=== PATIENT | male | born 1995 | race Two or more races ===

== ENCOUNTER 2018-02-13 19:44 | Emergency (ER) | payer OTHER ==
[~2018-02-13] VITALS: Ht 177.8 cm; Wt 56.7 kg
[2018-02-13 19:57] VITALS: BP 144/94
[2018-02-13] MEDS ORDERED: Acetaminophen 500mg (ES) tab ORAL ONE (20:15)
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
[2018-02-13] MEDS ORDERED: ROBAXIN500 MG PO (20:43)
[2018-02-13] MEDS ORDERED: TYLENOL EXTRA500 MG ORAL (20:43)
[2018-02-13 20:55] VITALS: BP 144/94
--- NOTE | 2018-02-14 08:51 | Diagnostic Imaging Report ---
Indication: Pain in the right ribs Technique: 4 views of the right ribs Comparison: none Findings: No acute fracture demonstrated. No pneumothorax. Impression: Negative
--- NOTE | 2018-02-14 08:52 | Diagnostic Imaging Report ---
Clinical Indication:Pain Technique: 3 views of the left wrist Comparison: None Findings: No acute fractures. No dislocations. The joint spaces are preserved Impression: Negative
== END 2018-02-13 20:55 | disposition home or self-care (01) ==
LOC: EMR 20:15
DX: M25.532 Pain in left wrist (principal); S20.211A Contusion of right front wall of thorax, initial encounter; V43.62XA Car passenger injured in collision with other type car in traffic accident, initial encounter; Y92.410 Unspecified street and highway as the place of occurrence of the external cause
CPT/HCPCS: 99284